=== PATIENT | female | born 1990 | race African-American/Black ===

== ENCOUNTER 2017-11-21 13:22 | Emergency (ER) | payer OTHER ==
[2017-11-21 13:27] VITALS: BP 124/78; PULSE 98; TEMP 99.6; BMI 27.4
[2017-11-21] MEDS ORDERED: IBUPROFEN 400 MG TABLET (FP) PO ONE ×2 (13:44→13:47)
--- NOTE | 2017-11-21 13:51 | PDOC ---
History of Present Illness - General Chief Complaint: Toothache Stated Complaint: FACE SWOLLEN Time Seen by Provider: 11/21/17 13:32 Past History - Past Medical History Allergies/Adverse Reactions: Allergies Allergy/AdvReac Type Severity Reaction Status Date / Time No Known Allergies Allergy Verified 11/21/17 13:27 Home Medications: Ambulatory Orders Clindamycin [Cleocin -] 300 mg PO Q6HPO #28 capsule 11/21/17 Ibuprofen [Motrin -] 2 tab PO Q6H #20 tablet 11/21/17 COPD: No - Suicide/Smoking/Psychosocial Hx Smoking History: Never smoked *Physical Exam - Vital Signs Last Vital Signs Temp Pulse Resp BP Pulse Ox 99.6 F 98 H 18 124/78 98 11/21/17 13:24 11/21/17 13:24 11/21/17 13:24 11/21/17 13:24 11/21/17 13:24 *DC/Admit/Observation/Transfer Diagnosis at time of Disposition: Dental caries, Right facial swelling - Discharge Dispostion Disposition: HOME Condition at time of disposition: Good - Prescriptions Prescriptions: Clindamycin [Cleocin -] 300 mg PO Q6HPO #28 capsule Ibuprofen [Motrin -] 2 tab PO Q6H #20 tablet - Referrals Referrals: Daily Carlson [Primary Care Provider] - - Patient Instructions Printed Discharge Instructions: DI for Tooth Decay, DI for Dental Pain Additional Instructions: You were treated for both inflammation and possible dental infection. You need to be seen by your dentist no later than Wednesday or Wednesday. If symptoms worsen in the interim, return to the ED - Post Discharge Activity
== END 2017-11-21 13:50 | disposition home or self-care (01) ==
LOC: JERFT 13:22
DX: K02.9 Dental caries, unspecified (principal)
CPT/HCPCS: 99281-25

== ENCOUNTER 2019-04-16 07:09 | Emergency (ER) | payer OTHER ==
[2019-04-16 07:24] VITALS: BP 113/68; PULSE 92; TEMP 97; BMI 27.4
[2019-04-16] MEDS ORDERED: BACITRACIN 15 GM TUBE TOPICAL OINTMENT TP ONE (07:47)
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
[2019-04-16] MEDS ORDERED: BACITRACIN 15 GM TUBE TOPICAL OINTMENT ONE (08:02)
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
== END 2019-04-16 09:40 | disposition home or self-care (01) ==
LOC: JER 07:09
DX: S00.81XA Abrasion of other part of head, initial encounter (principal); Y04.2XXA Assault by strike against or bumped into by another person, initial encounter; Y93.89 Activity, other specified; Y92.89 Other specified places as the place of occurrence of the external cause; Y99.8 Other external cause status; Y07.59 Other non-family member, perpetrator of maltreatment and neglect
CPT/HCPCS: 84703; 99283-25